=== PATIENT | female | born 1955 | race Caucasian/White ===

== ENCOUNTER 2020-09-09 10:00 | Outpatient (CLI) | payer BC, SELFPAY ==
[~2020-09-09] VITALS: Ht 167.6 cm; Wt 93.0 kg
[2020-09-13] MEDS ORDERED: CEFAZOLIN SOD 2 GM in D5W 50 ML IV ONE (07:15)
[2020-09-13 12:55] VITALS: BP_SYST 121
== END 2020-09-09 11:00 | disposition home or self-care (01) ==
LOC: SLB 10:00 → SDS 09-13 12:06 → SMU 09-13 12:08 → EDSTATUS 09-13 13:30 → SMU 09-13 14:16 → SDS 09-13 14:16
PROVIDERS: ATTEND Surgery
DX: R22.41 Localized swelling, mass and lump, right lower limb (principal); D17.23 Benign lipomatous neoplasm of skin and subcutaneous tissue of right leg; E66.9 Obesity, unspecified; I10 Essential (primary) hypertension; Z95.810 Presence of automatic (implantable) cardiac defibrillator; Z20.822 Contact with and (suspected) exposure to COVID-19; Z53.8 Procedure and treatment not carried out for other reasons
CPT/HCPCS: J0690; J7060; J7120; U0003

== ENCOUNTER 2020-10-15 06:57 | Day surgery (SDC) | payer BC, SELFPAY ==
[~2020-10-15] VITALS: Ht 167.6 cm; Wt 90.7 kg
[2020-10-15] MEDS ORDERED: CEFAZOLIN 2 GM IVPB PREMIX 50 ML IV ONE (07:00)
[2020-10-15] MEDS ORDERED: fentaNYL CITRATE/PF 100 MCG/2 ML AMP IVP ONE (07:45)
[2020-10-15] MEDS ORDERED: ROCURONIUM BROMIDE 10 MG/ML (ZEMURON) IV ONE (07:45)
[2020-10-15] MEDS ORDERED: METOCLOPRAMIDE HCL 10 MG/2 ML VIAL IVP ONE (07:45)
[2020-10-15] MEDS ORDERED: BUPIVACAINE /EPINEPHRINE/PF 0.25% 30 ML VIAL INJ ONE (07:45)
[2020-10-15] MEDS ORDERED: SEVOFLURANE 15 MIN GAS INH ONE (07:45)
[2020-10-15] MEDS ORDERED: NEOSTIGMINE METHYLSULFATE 1 MG/ML, 10 ML VIAL IVP ONE (07:45)
[2020-10-15] MEDS ORDERED: ETOMIDATE 20 MG/ 10 ML VIAL (AMIDATE) IVP ONE (07:45)
[2020-10-15] MEDS ORDERED: LR 1,000 ML IV.SOLN IV ONE (07:45)
[2020-10-15] MEDS ORDERED: LIDOCAINE 1% 10 MG/ML, 20 ML MDV INJ ONE (07:45)
[2020-10-15] MEDS ORDERED: GLYCOPYRROLATE 0.2 MG/ML VIAL IJ ONE (07:45)
[2020-10-15] MEDS ORDERED: SUCCINYLCHOLINE CHLORIDE 20 MG/ML(QUELICIN) IVP ONE (07:45)
[2020-10-15] MEDS ORDERED: DEXAMETHASONE SOD PHOSPHATE 4 MG/ML VIAL IVP ONE (07:45)
[2020-10-15] MEDS ORDERED: PHENYLEPHRINE HCL 10 MG/ML VIAL (NEOSYNEPHRINE) IV ONE (07:45)
[2020-10-15] MEDS ORDERED: PROPOFOL 200MG/ 20ML VIAL (DIPRIVAN) IV ONE (07:45)
[2020-10-15] MEDS ORDERED: WATER FOR IRRIGATION,STERILE 1,000 ML IRRIG.SOLN IR ONE (07:45)
[2020-10-15] MEDS ORDERED: ONDANSETRON HCL 4 MG/2 ML VIAL IVP ONE (07:45)
[2020-10-15] MEDS ORDERED: fentaNYL CITRATE/PF 100 MCG/2 ML AMP IVP PRN (09:45)
[2020-10-15] MEDS ORDERED: LR 1,000 ML IV SCH (09:45)
[2020-10-15] MEDS ORDERED: MEPERIDINE HCL/PF 25 MG/ML DISP.SYRIN IVP PRN (09:45)
[2020-10-15] MEDS ORDERED: OXYCODONE/ACETAMINOPHEN 5-325 TABLET PO PRN (09:45)
[2020-10-15] MEDS ORDERED: traMADol HCL HCL 50 MG TABLET (ULTRAM) PO PRN (11:00)
[2020-10-15 12:20] VITALS: BP_SYST 114
== END 2020-10-15 13:40 | disposition home or self-care (01) ==
LOC: SMU 06:57 → SDS 06:57
PROVIDERS: ATTEND Surgery
DX: R22.41 Localized swelling, mass and lump, right lower limb (principal); D17.23 Benign lipomatous neoplasm of skin and subcutaneous tissue of right leg; I12.9 Hypertensive chronic kidney disease with stage 1 through stage 4 chronic kidney disease, or unspecified chronic kidney disease; N18.9 Chronic kidney disease, unspecified; E78.5 Hyperlipidemia, unspecified; Z20.822 Contact with and (suspected) exposure to COVID-19; Z79.899 Other long term (current) drug therapy
CPT/HCPCS: 27337; J0330; J0690; J1100; J2001; J2370; J2405; J2704; J2710; J2765; J3010; J3490 ×3; J7120; U0003

== ENCOUNTER 2021-01-17 12:31 | Day surgery (SDC) | payer BC, SELFPAY ==
[~2021-01-17] VITALS: Ht 167.6 cm; Wt 90.7 kg
[~2021-01-17 12:31] MED LIST: CEFAZOLIN SOD 2 GM in D5W 50 ML IV ONE; LR 1,000 ML IV SCH
[2021-01-17] MEDS ORDERED: METOCLOPRAMIDE HCL 10 MG/2 ML VIAL IVP PRN (15:45)
[2021-01-17] MEDS ORDERED: LR 1,000 ML IV SCH (15:45)
[2021-01-17] MEDS ORDERED: MIDAZOLAM HCL 2 MG/2 ML VIAL (VERSED) IVP PRN (15:45)
[2021-01-17] MEDS ORDERED: LABETALOL 100 MG/ 20ML VIAL IVP PRN (15:45)
[2021-01-17] MEDS ORDERED: hydrALAZINE HCL 20 MG/ML VIAL IVP PRN (15:45)
[2021-01-17] MEDS ORDERED: MEPERIDINE HCL/PF 25 MG/ML DISP.SYRIN IVP PRN (15:45)
[2021-01-17] MEDS ORDERED: HYDROmorphone 1 MG/ML INJ. CARTRIDGE IVP PRN ×2 (15:45)
[2021-01-17] MEDS ORDERED: KETOROLAC TROMETHAMINE 30 MG VIAL IVP ONE (17:16)
[2021-01-17] MEDS ORDERED: NS IRRIG SOLN 1000 ML IR ONE (17:16)
[2021-01-17] MEDS ORDERED: ONDANSETRON HCL 4 MG/2 ML VIAL IVP ONE (17:16)
[2021-01-17] MEDS ORDERED: MIDAZOLAM HCL 5 MG/5 ML VIAL IVP ONE (17:16)
[2021-01-17] MEDS ORDERED: LIDOCAINE 1% 10 MG/ML, 20 ML MDV INJ ONE (17:16)
[2021-01-17] MEDS ORDERED: LR 1,000 ML IV.SOLN IV ONE (17:16)
[2021-01-17] MEDS ORDERED: ROCURONIUM BROMIDE 10 MG/ML (ZEMURON) IV ONE (17:16)
[2021-01-17] MEDS ORDERED: BUPIVACAINE /PF 0.25% 30 ML VIAL INJ ONE (17:16)
[2021-01-17] MEDS ORDERED: PROPOFOL 200MG/ 20ML VIAL (DIPRIVAN) IV ONE (17:16)
[2021-01-17] MEDS ORDERED: DESFLURANE 15 MIN GAS INH ONE (17:16)
[2021-01-17] MEDS ORDERED: fentaNYL CITRATE/PF 100 MCG/2 ML AMP IVP ONE (17:16)
[2021-01-17] MEDS ORDERED: DEXAMETHASONE SOD PHOSPHATE 4 MG/ML VIAL IVP ONE (17:16)
[2021-01-17 18:01] VITALS: BP_SYST 130
== END 2021-01-17 19:00 | disposition home or self-care (01) ==
LOC: SDS 12:31 → SMU 12:34 → SDS 19:00
PROVIDERS: ATTEND Surgery
DX: C49.21 Malignant neoplasm of connective and soft tissue of right lower limb, including hip (principal); R22.41 Localized swelling, mass and lump, right lower limb; C76.51 Malignant neoplasm of right lower limb; Z95.0 Presence of cardiac pacemaker; Z79.899 Other long term (current) drug therapy; Z85.3 Personal history of malignant neoplasm of breast; Z98.890 Other specified postprocedural states
CPT/HCPCS: 11402; 11404; 36415; 87426; 88305; 88307; J0690; J1100; J1885; J2001; J2405; J2704; J3010; J3490; J7060; J7120; J2250; J3465